=== PATIENT | male | born 1955 | race Caucasian/White ===

== ENCOUNTER 2024-11-05 07:05 | Outpatient (CLI) | payer MEDICARE | END 2024-11-05 23:59 | disposition home or self-care (01) | LOC: MRI02 07:05 | PROVIDERS: ATTEND Nurse Practitioner Family | DX: G93.49 Other encephalopathy (principal); R40.4 Transient alteration of awareness; R29.6 Repeated falls; H91.93 Unspecified hearing loss, bilateral; R55 Syncope and collapse; M54.2 Cervicalgia; G31.9 Degenerative disease of nervous system, unspecified | CPT/HCPCS: 70551; 72141 ==